=== PATIENT | male | born 1985 ===

== ENCOUNTER 2016-09-15 19:22 | Emergency (ER) | payer OTHER ==
[2016-09-15 19:36] VITALS: TEMP 98.9; BMI 25.8
[2016-09-15 21:03] LABS: URINE BILIRUBIN NEGATIVE (NEGATIVE); URINE BLOOD SMALL (NEGATIVE); URINE GLUCOSE (UA) NEGATIVE (NEGATIVE); URINE KETONE NEGATIVE (NEGATIVE); URINE LEUKOCYTE ESTERASE NEGATIVE Leu/uL (NEGATIVE); URINE PROTEIN NEGATIVE mg/dL (<30 mg/dL)
[2016-09-15] MEDS ORDERED: Oxycodone/Acetaminophen 5/325 mg Tab PO STA (22:07)
--- NOTE | 2016-09-15 22:21 | ED PDOC ---
"Arrival/HPI <Cory Ruth - Last Filed: 09/15/16 23:04> - General Historian: Patient - History of Present Illness Time/Duration: Other (2 years) Symptom Onset: Gradual Symptom Course: Intermittent Quality: Aching, Stabbing, Throbbing Severity Level: 9 <Cammie Luis - Last Filed: 09/16/16 00:21> - General Chief Complaint: Back Pain Time Seen by Provider: 09/15/16 19:49 - History of Present Illness Narrative History of Present Illness (Text): 09/15/16 22:16 30-year-old male with a 2 year history of chronic low back pain radiating into the right leg presents today with worsening low back pain. Patient states he developed back pain while he was incarcerated and since he's been released he noticed that the back pain seems to be flaring up every 3 weeks or so now for the past few months. Patient denies bladder or bowel incontinence. He denies numbness weakness or tingling in the extremity. He denies any recent trauma or injury. Patient states the pain starts in the low back radiates into the right thigh. No medications have been taken for pain at home. Patient states he does self medicate with marijuana at times when the pain is very severe. Patient denies any urinary symptoms. Denies testicular pain. Denies abdominal pain. No other complaints. (Cammie Luis) Past Medical History - Provider Review Nursing Documentation Reviewed: Yes - Travel History Have you recently traveled outside [place] w/in the past 3 mons?: No - Tetanus Immunization Tetanus Immunization: Up to Date - Cardiac Hx Cardiac Disorders: No - Pulmonary Hx Respiratory Disorders: No - Neurological Hx Neurological Disorder: No - HEENT Hx HEENT Disorder: No - Renal Hx Renal Disorder: No - Endocrine/Metabolic Hx Endocrine Disorders: No - Hematological/Oncological Hx Blood Disorders: No - Integumentary Hx Dermatological Disorder: No - Musculoskeletal/Rheumatological Hx Musculoskeletal Disorders: Yes Hx Back Pain: Yes - Gastrointestinal Hx Gastrointestinal Disorders: No - Genitourinary/Gynecological Hx Genitourinary Disorders: No - Psychiatric Hx Psychophysiologic Disorder: No Hx Substance Use: Yes (marijuana) <Cammie Luis - Last Filed: 09/16/16 00:21> Family/Social History - Physician Review Nursing Documentation Reviewed: Yes Family/Social History: Unknown Family HX Smoking Status: Former Smoker Hx Alcohol Use: No Hx Substance Use: Yes (marijuana) <Cammie Luis - Last Filed: 09/16/16 00:21> Allergies/Home Meds <Cory Ruth - Last Filed: 09/15/16 23:04> <Cammie Luis - Last Filed: 09/16/16 00:21> Allergies/Adverse Reactions: Allergies FISH Allergy (Verified 09/15/16 19:34) ANAPHYLAXIS shellfish derived Allergy (Verified 09/15/16 19:34) ANAPHYLAXIS Review of Systems - Review of Systems Constitutional: absent: Fatigue, Fevers Respiratory: absent: SOB, Cough Cardiovascular: absent: Chest Pain, Palpitations Gastrointestinal: absent: Abdominal Pain, Nausea, Vomiting Musculoskeletal: Arthralgias (back pain radiating into right leg), Back Pain. absent: Neck Pain Skin: absent: Rash, Pruritis Neurological: absent: Headache, Dizziness Psychiatric: absent: Anxiety, Depression <Cammie Luis - Last Filed: 09/16/16 00:21> Physical Exam Vital Signs Reviewed: Yes Temperature: Afebrile Blood Pressure: Normal Pulse: Regular Respiratory Rate: Normal Appearance: Positive for: Well-Appearing, Non-Toxic, Comfortable Pain Distress: None Mental Status: Positive for: Alert and Oriented X 3 - Systems Exam Head: Present: Atraumatic Mouth: Present: Moist Mucous Membranes Neck: Present: Normal Range of Motion Respiratory/Chest: Present: Clear to Auscultation, Good Air Exchange. No: Respiratory Distress, Accessory Muscle Use Cardiovascular: Present: Regular Rate and Rhythm, Normal S1, S2. No: Murmurs Abdomen: Present: Normal Bowel Sounds. No: Tenderness, Distention, Peritoneal Signs, Rebound, Guarding Back: Present: Normal Inspection, Midline Tenderness, Paraspinal Tenderness (+ bilateral paraspinal tenderness), Pain with Leg Raise Upper Extremity: Present: Normal Inspection, Normal ROM Lower Extremity: Present: Normal Inspection, Neurovascularly Intact, Capillary Refill < 2 s. No: Tenderness, Swelling Neurological: Present: GCS=15, Speech Normal Skin: Present: Warm, Dry, Normal Color. No: Rashes Psychiatric: Present: Alert, Oriented x 3 <Cammie Luis - Last Filed: 09/16/16 00:21> Vital Signs Temp Pulse Resp BP Pulse Ox 09/15/16 19:34 98.9 F 78 16 131/79 98 Medical Decision Making <Cory Ruth - Last Filed: 09/15/16 23:04> <Cammie Luis - Last Filed: 09/16/16 00:21> ED Course and Treatment: 09/16/16 00:14 Patient nontoxic well-appearing in no distress with stable vital signs. Toradol, Flexeril, Percocet X-ray of the lumbar spine: No fracture Urinalysis shows blood CAT scan of the abdomen and pelvis: FINDINGS: Lower thorax: No acute findings. ABDOMEN: Liver: Unremarkable. Gallbladder and bile ducts: No calcified stones. No ductal dilation. Pancreas: Unremarkable. No ductal dilation. Spleen: No splenomegaly. Adrenals: No mass. Kidneys and ureters: Few punctate calculi within LEFT kidney. No hydronephrosis. Stomach and bowel: No definite mural thickening. No obstruction. Appendix: Normal caliber. No inflammation. PELVIS: Bladder: Unremarkable. No stones. Reproductive: Unremarkable as visualized. ABDOMEN and PELVIS: Intraperitoneal space: No significant fluid collection. No free air. GRANT ARREDONDO | Final Radiology Report CONFIDENTIALITY STATEMENT This report is intended only for use by the referring physician, and only in accordance with law. If you received this in error, call [phone]. Page 2 of 2 Bones/joints: No acute fracture. Soft tissues: Unremarkable. Vasculature: Unremarkable. No abdominal aortic aneurysm. Lymph nodes: No pathologically enlarged lymph nodes. IMPRESSION: 1. Nonobstructing renal calculi. 2. Incidental/non-acute findings are described above. Patient reassessment: Feeling better with medications ambulating with a steady gait. Muscle strength 5 out of 5 bilaterally. Patient was looked up in the [facility] aware website. No prior narcotic prescriptions. I discussed the risk of addiction with these medications and will discharge the patient home on a short course of Percocet for breakthrough pain. I advised to followup with the orthopedist within the next 2 days. Return if symptoms worsen persist or new symptoms develop Patient verbalizes understanding of discharge instructions and need for immediate followup. Impression: Back pain, hematuria, kidney stones Motrin every 6 hours as needed for pain Flexeril one tablet every 8 hours as needed for muscle spasms: May cause drowsiness percocet one tablet every 6 hours as needed for moderate to severe pain: May cause drowsiness Followup with the orthopedist within the next 2 days Followup with primary care physician within the next 2 days Return if symptoms worsen persist or if new symptoms develop (Cammie Luis) - Lab Interpretations Lab Results: Lab Results 09/15/16 20:50: Urine Color Yellow, Urine Appearance Clear, Urine pH 6.0, Ur Specific [place] 1.025, Urine Protein Negative, Urine Glucose (UA) Negative, Urine Ketones Negative, Urine Blood Small H, Urine Nitrate Negative, Urine Bilirubin Negative, Urine Urobilinogen 1.0 H, Ur Leukocyte Esterase Negative, Urine RBC 2 - 5, Urine WBC 0 - 2, Urine Bacteria Few - RAD Interpretation Radiology Orders: 09/15/16 20:26 LS SPINE WITH OBL > 18 YRS OLD [RAD] Stat 09/15/16 22:51 ABD & PELVIS W/O PO OR IV CONT [CT] Stat - Medication Orders Current Medication Orders: Discontinued Medications Cyclobenzaprine HCl (Flexeril) 10 mg PO STAT STA Stop: 09/15/16 20:27 Last Admin: 09/15/16 20:51 Dose: 10 MG Ketorolac Tromethamine (Toradol) 60 mg IM STAT STA Stop: 09/15/16 20:27 Last Admin: 09/15/16 20:51 Dose: 60 MG IM Administration Charges Document 09/15/16 20:51 MR (Rec: 09/15/16 20:51 MR [id number]) Injection Site MAR Injection Site Right Gluteus Jeffrey Charges for Administration # of IM Administrations 1 Oxycodone/Acetaminophen (Percocet 5/325 Mg Tab) 1 tab PO STAT STA Stop: 09/15/16 22:08 Last Admin: 09/15/16 23:24 Dose: 1 TAB - PA / [employer]ITROCELLUL[employer]KER / Resident Statement / has reviewed & agrees with the documentation as recorded. <Cory Ruth - Last Filed: 09/15/16 23:04> Disposition/Present on Arrival <Cory Ruth - Last Filed: 09/15/16 23:04> - Present on Arrival Any Indicators Present on Arrival: No History of DVT/PE: No History of Uncontrolled Diabetes: No Urinary Catheter: No History of Decub. Ulcer: No History Surgical Site Infection Following: None - Disposition Have Diagnosis and Disposition been Completed?: Yes Disposition Time: 00:19 Patient Plan: Discharge <Cammie Luis - Last Filed: 09/16/16 00:21> - Disposition Diagnosis: Back pain, Hematuria, Kidney stones Disposition: HOME/ ROUTINE Condition: GOOD Discharge Instructions (ExitCare): Back Pain (ED), Kidney Stones (ED) Additional Instructions: Motrin every 6 hours as needed for pain Flexeril one tablet every 8 hours as needed for muscle spasms: May cause drowsiness percocet one tablet every 6 hours as needed for moderate to severe pain: May cause drowsiness Followup with the orthopedist within the next 2 days Followup with primary care physician within the next 2 days Return if symptoms worsen persist or if new symptoms develop Prescriptions: Cyclobenzaprine [Cyclobenzaprine HCl] 10 mg PO Q8 #10 tab Ibuprofen [Motrin] 600 mg PO Q6H PRN #20 tab PRN Reason: pain/fever reduction oxyCODONE/Acetaminophen [Percocet 5/325 mg Tab] 1 tab PO Q6H PRN #6 tab PRN Reason: moderate to severe pain Referrals: Binh Phelps DO [Staff Provider] - Follow up with primary Anibal Metcalf MD [Staff Provider] - Follow up with primary [facility] [place] [Outside] - Follow up with primary [facility] [place] [Outside] - Follow up with primary Forms: WORK NOTE"
[2016-09-15 22:50] LABS: URINE APPEARANCE CLEAR (CLEAR); URINE COLOR YELLOW (YELLOW)
[2016-09-15 23:04] LABS: URINE BACTERIA FEW (NEG); URINE WBC 0 - 2 /hpf (0-6)
--- NOTE | 2016-09-15 23:52 | CT ---
EXAM: CT Abdomen and Pelvis Without Intravenous Contrast CLINICAL HISTORY: 30 years old, male; Pain; Abdominal pain; Flank; Right; Additional info: Right sided back pain TECHNIQUE: Axial computed tomography images of the abdomen and pelvis without intravenous contrast. This CT exam was performed using one or more of the following dose reduction techniques: automated exposure control, adjustment of the mA and/or kV according to patient size, and/or use of iterative reconstruction technique. Coronal and sagittal reformatted images were created and reviewed. COMPARISON: No relevant prior studies available. FINDINGS: Lower thorax: No acute findings. ABDOMEN: Liver: Unremarkable. Gallbladder and bile ducts: No calcified stones. No ductal dilation. Pancreas: Unremarkable. No ductal dilation. Spleen: No splenomegaly. Adrenals: No mass. Kidneys and ureters: Few punctate calculi within LEFT kidney. No hydronephrosis. Stomach and bowel: No definite mural thickening. No obstruction. Appendix: Normal caliber. No inflammation. PELVIS: Bladder: Unremarkable. No stones. Reproductive: Unremarkable as visualized. ABDOMEN and PELVIS: Intraperitoneal space: No significant fluid collection. No free air. Bones/joints: No acute fracture. Soft tissues: Unremarkable. Vasculature: Unremarkable. No abdominal aortic aneurysm. Lymph nodes: No pathologically enlarged lymph nodes. IMPRESSION: 1. Nonobstructing renal calculi. 2. Incidental/non-acute findings are described above.
[2016-09-16 00:04] VITALS: BP 126/70; PULSE 56; RESP 18; O2SAT 99
--- NOTE | 2016-09-16 07:58 | RAD ---
PROCEDURE: Radiographs of the Lumbar Spine. HISTORY: back pain COMPARISON: No prior. FINDINGS: BONES: Normal alignment. No listhesis. No fracture. DISC SPACES: Unremarkable. OTHER FINDINGS: None. IMPRESSION: Unremarkable radiographs of the lumbar spine.
== END 2016-09-16 00:44 | disposition home or self-care (01) ==
LOC: ED 19:22
DX: N20.0 Calculus of kidney (principal); R31.9 Hematuria, unspecified; M54.9 Dorsalgia, unspecified
CPT/HCPCS: 72110; 74176; 81001; 96372; 99283; J1885